=== PATIENT | female | born 1980 ===

== ENCOUNTER 2022-01-06 10:15 | Inpatient (IN) | payer OTHER ==
[~2022-01-06] VITALS: Ht 167.6 cm; Wt 102.1 kg
[2022-01-06] MEDS ORDERED: LEVO-T150 MCG PO (14:43)
[2022-01-06] MEDS ORDERED: TOPROL XL50 M1 PO (14:43)
== END 2022-01-11 11:35 | disposition home or self-care (01) | DRG 743 ==
LOC: OB/GYN 01-09 06:32 → O/R 01-09 06:32 → SURH 01-09 07:00 → OB/GYN 01-09 11:32
PROVIDERS: ADMIT Obstetrics & Gynecology Gynecologic Oncology; ATTEND Obstetrics & Gynecology Gynecologic Oncology
PROC: 0UT60ZZ Resection of Left Fallopian Tube, Open Approach (ICD-10-PCS; 2022-01-09)
PROC: 0UT10ZZ Resection of Left Ovary, Open Approach (ICD-10-PCS; 2022-01-09)
PROC: 0TN70ZZ Release Left Ureter, Open Approach (ICD-10-PCS; 2022-01-09)
PROC: 0TN60ZZ Release Right Ureter, Open Approach (ICD-10-PCS; 2022-01-09)
PROC: 0WBH0ZZ Excision of Retroperitoneum, Open Approach (ICD-10-PCS; 2022-01-09)
PROC: 0UB00ZZ Excision of Right Ovary, Open Approach (ICD-10-PCS; 2022-01-09)
PROC: 0DTP0ZZ Resection of Rectum, Open Approach (ICD-10-PCS; 2022-01-09)
PROC: 0UTG0ZZ Resection of Vagina, Open Approach (ICD-10-PCS; 2022-01-09)
PROC: 0UT90ZZ Resection of Uterus, Open Approach (ICD-10-PCS; principal; 2022-01-09 07:00)
DX: N80.0 Endometriosis of uterus (principal); N80.1 Endometriosis of ovary; N80.2 Endometriosis of fallopian tube; N80.8 Other endometriosis; N83.01 Follicular cyst of right ovary; D25.9 Leiomyoma of uterus, unspecified; Z20.822 Contact with and (suspected) exposure to COVID-19